=== PATIENT | female | born 1965 ===

== ENCOUNTER 2021-01-14 11:45 | Inpatient (IN) | payer OTHER ==
[~2021-01-14] VITALS: Ht 162.6 cm; Wt 78.0 kg
[2021-01-14] MEDS ORDERED: AVAPRO150 MG PO (16:08)
[2021-01-14] MEDS ORDERED: VITAMIN D PO (16:09)
[2021-01-14] MEDS ORDERED: CALTRATE 600+D1 EAC1 PO (16:09)
[2021-01-15] MEDS ORDERED: VITAMIN D3250 MC1 (08:08)
== END 2021-01-18 11:40 | disposition home or self-care (01) | DRG 738 ==
LOC: O/R 01-15 05:20 → OB/GYN 01-15 05:20
PROVIDERS: ADMIT Specialist; ATTEND Specialist
PROC: 0UT20ZZ Resection of Bilateral Ovaries, Open Approach (ICD-10-PCS; 2021-01-15)
PROC: 0UT70ZZ Resection of Bilateral Fallopian Tubes, Open Approach (ICD-10-PCS; 2021-01-15)
PROC: 0UT90ZZ Resection of Uterus, Open Approach (ICD-10-PCS; principal; 2021-01-15 14:15)
DX: C56.1 Malignant neoplasm of right ovary (principal); N85.8 Other specified noninflammatory disorders of uterus; R19.00 Intra-abdominal and pelvic swelling, mass and lump, unspecified site; I10 Essential (primary) hypertension